=== PATIENT | female | born 1995 | race Caucasian/White ===

== ENCOUNTER 2019-11-17 23:29 | Emergency (ER) | payer MEDICAID ==
[~2019-11-17] VITALS: Ht 154.9 cm; Wt 72.6 kg
[2019-11-17 23:38] VITALS: BP 128/78
--- NOTE | 2019-11-18 00:03 | NUR ---
XRAY AT BEDSIDE
--- NOTE | 2019-11-18 00:10 | NUR ---
XRAY AT BEDSIDE
== END 2019-11-18 01:10 | disposition home or self-care (01) ==
LOC: ER 23:33
DX: M25.532 Pain in left wrist (principal); J45.909 Unspecified asthma, uncomplicated
CPT/HCPCS: 73110

== ENCOUNTER 2021-02-17 19:44 | Emergency (ER) | payer MEDICAID ==
[~2021-02-17] VITALS: Ht 154.9 cm; Wt 65.8 kg
--- NOTE | 2021-02-17 20:00 | NUR ---
DEJA NGUYENSELF FOR ABD PAIN X 3 DAYS, WORSE SINCE, STATES DIARRHEA BUT DENIES URINARY SX. KEVEN IS A/OX 4, STABLE ON ROOM AIR. PATIENT CONNECTED TO CARE ASST AND POX. WILL CONTINUE TO MONIOTR.
--- NOTE | 2021-02-17 20:05 | NUR ---
URINE COLLECTED AND SENT TO LAB
[2021-02-17 20:22] LABS: BILIRUBIN,URINE Negative (NEGATIVE); COLOR,URINE YELLOW (YELLOW); LEUKOCYTE ESTERASE ,URINE Negative (NEGATIVE); NITRITE, URINE Negative (NEGATIVE); PROTEIN,URINE Negative (NEGATIVE); UGLUCOSE Negative (NEGATIVE); UROBILINOGEN,URINE 0.2 EU/dL (0.2)
[2021-02-17] MEDS ORDERED: IV NS 0.9% 1,000 ML BAG IV ONE (20:30)
[2021-02-17] MEDS ORDERED: KETOROLAC TROMETHAMINE INJ 30 MG/ML VIAL IV ONE ×2 (20:30→22:30)
[2021-02-17 20:34] LABS: BASOPHILS # (AUTO) 0.1 /CMM (0.0-0.2); BASOPHILS % (AUTO) 0.6 % (0.0-2.0); EOSINOPHILS % (AUTO) 2.9 % (0.0-6.0); HEMATOCRIT 37 % (33-45); HEMOGLOBIN 12.5 g/dL (11.5-14.8); LYMPHOCYTES # (AUTO) 1.9 /CMM (0.8-4.8); LYMPHOCYTES % (AUTO) 20.8 % (20.0-44.0); MEAN CORPUSCULAR HGB CONC 34 g/dl (31.0-36.0); MEAN CORPUSCULAR VOLUME 84 fL (82-100); MONOCYTES # (AUTO) 0.6 /CMM (0.1-1.30); MONOCYTES % (AUTO) 7.1 % (2.0-12.0); NEUTROPHILS # (AUTO) 6.2 /CMM (1.8-8.9); NEUTROPHILS % (AUTO) 68.6 % (43.0-81.0); PLATELET COUNT (AUTO) 325 /CMM (150-450); WHITE BLOOD COUNT (AUTO) 9.1 K/uL (4.3-11.0)
[2021-02-17] MEDS ORDERED: KETOROLAC TROMETHAMINE 15 MG/ML VIAL ONE ×2 (20:34→22:05)
[2021-02-17 20:54] LABS: ALBUMIN 3.3 g/dL (3.4-5.0); BILIRUBIN,DIRECT 0.1 mg/dL (0.0-0.2); BILIRUBIN,TOTAL 0.6 mg/dL (0.2-1.0); CALCIUM, SERUM 8.8 mg/dL (8.5-10.1); CREATININE 0.7 mg/dL (0.6-1.3); POTASSIUM 4.4 mmol/L (3.5-5.1)
[2021-02-17] MEDS ORDERED: CT SWABBABLE VALVE TRANS SET 1 EA INFUS.SET MC ONE (21:09)
[2021-02-17] MEDS ORDERED: IOHEXOL-300 100 ML VIAL IV ONE (21:09)
[2021-02-17] MEDS ORDERED: IV NS 0.9% 250 ML IV ONE (21:09)
--- NOTE | 2021-02-17 21:11 | NUR ---
PATIENT TAKEN TO CT
[2021-02-17] MEDS ORDERED: ACET-73 PO (21:49)
[2021-02-17] MEDS ORDERED: IBUP-1957 PO (21:49)
[2021-02-17] MEDS ORDERED: DICY20TA11 PO (21:49)
[2021-02-17 22:25] VITALS: BP 122/55
--- NOTE | 2021-02-17 22:26 | NUR ---
Patient discharged to home in stable condition. Rx and Written and verbal after care instructions given. Patient verbalizes understanding of instruction. ambulatory with a steady gait
== END 2021-02-17 22:26 | disposition home or self-care (01) ==
LOC: ER 19:44
DX: K52.9 Noninfective gastroenteritis and colitis, unspecified (principal); N83.209 Unspecified ovarian cyst, unspecified side
CPT/HCPCS: 36415; 74177; 80048; 80076; 81003; 83690; 84703; 85025; 96361; 96374; 96376; 99285; J1885 ×2; J7030; J7050; Q9967